=== PATIENT | male | born 1950 | race Caucasian/White ===

== ENCOUNTER 2018-11-11 22:25 | Emergency (ER) | payer MEDICAID, OTHER ==
[~2018-11-11] VITALS: Ht 167.6 cm; Wt 66.4 kg
[2018-11-11 22:29] VITALS: Ht 167.6 cm; Wt 66.4 kg
[2018-11-12] MEDS ORDERED: ONDANSETRON 4 MG INJ IV STA (00:51)
--- NOTE | 2018-11-12 04:39 | ERD ---
ER Documentation Chief Complaint Chief Complaint FEVER, GRAF, VOMITING, BODY ACHES X'S 1 DAY, DENIES CP/SOB HPI Is a 60-year-old male coming with the fevers headaches vomiting body aches and cough for the past 2 days. He denies chest pain or shortness of breath. Denies headache. Denies any current issues. Pain is mild to moderate intensity vomit is nonbilious nonbloody. Posttussive Yao only. Denies any other current issues. ROS All systems reviewed and are negative except as per history of present illness. Allergies Allergies: Coded Allergies: ciprofloxacin (Verified Allergy, Unknown, 11/11/18) PMhx/Soc History of Surgery: Yes (colon resection w/ colostomy 1999, colostomy reversal 2002, app) Anesthesia Reaction: No Hx Cardiac Disorders: Yes (HTN) Hx Psychiatric Problems: No Hx Miscellaneous Medical Probl: Yes (two hernias, right knee problem NOS) Hx Alcohol Use: No (doesn't drink) Hx Substance Use: No Hx Tobacco Use: No Smoking Status: Never smoker Physical Exam Vitals Vital Signs Date Temp Pulse Resp B/P (MAP) Pulse Ox O2 O2 Flow FiO2 Time Delivery Rate 11/12/18 55 20 155/57 97 Room Air 04:05 (89) 11/12/18 98.2 55 17 124/54 98 Room Air 01:10 (77) 11/11/18 100.3 82 22 145/64 94 22:29 (91) Physical Exam Const: No acute distress Head: Atraumatic Eyes: Normal Conjunctiva ENT: Normal External Ears, Nose and Mouth. Neck: Full range of motion. No meningismus. Resp: Clear to auscultation bilaterally Cardio: Regular rate and rhythm, no murmurs Abd: Soft, non tender, non distended. Normal bowel sounds Skin: No petechiae or rashes Back: No midline or flank tenderness Ext: No cyanosis, or edema Neur: Awake and alert Psych: Normal Mood and Affect Result Diagram: 11/12/1811711/12/18117 Results 24 hrs Laboratory Tests Test 11/12/18 01:12 11/12/18 01:18 11/12/18 03:14 POC Venous Lactate 0.8 mmol/L White Blood Count 24.1 10^3/ul Red Blood Count 3.97 10^6/ul Hemoglobin 11.8 g/dl Hematocrit 35.1 % Mean Corpuscular Volume 88.4 fl Mean Corpuscular Hemoglobin 29.7 pg Mean Corpuscular 33.6 g/dl Hemoglobin Concent Red Cell Distribution Width 13.1 % Platelet Count 235 10^3/UL Mean Platelet Volume 9.3 fl Immature Granulocytes % 1.200 % Neutrophils % 89.1 % Lymphocytes % 2.2 % Monocytes % 7.3 % Eosinophils % 0.0 % Basophils % 0.2 % Nucleated Red Blood Cells % 0.0 /100WBC Immature Granulocytes # 0.300 10^3/ul Neutrophils # 21.5 10^3/ul Lymphocytes # 0.5 10^3/ul Monocytes # 1.8 10^3/ul Eosinophils # 0.0 10^3/ul Basophils # 0.1 10^3/ul Nucleated Red Blood Cells # 0.0 10^3/ul Prothrombin Time 14.2 Sec Prothrombin Time Ratio 1.1 INR International Normalized Ratio 1.09 Activated Partial Thromboplast 30.5 Sec Time Sodium Level 143 mmol/L Potassium Level 3.2 mmol/L Chloride Level 109 mmol/L Carbon Dioxide Level 23 mmol/L Anion Gap 11 Blood Urea Nitrogen 20 mg/dl Creatinine 0.98 mg/dl Est Glomerular Filtrat Rate mL/min > 60 mL/min Glucose Level 120 mg/dl Calcium Level 9.1 mg/dl Total Bilirubin 0.8 mg/dl Direct Bilirubin 0.00 mg/dl Indirect Bilirubin 0.8 mg/dl Aspartate Amino Transf (AST/SGOT) 47 IU/L Alanine 30 IU/L Aminotransferase (ALT/SGPT) Alkaline Phosphatase 100 IU/L Troponin I < 0.012 ng/ml B-Type Natriuretic Peptide 132 PG/ML Total Protein 8.1 g/dl Albumin 4.2 g/dl Globulin 3.90 g/dl Albumin/Globulin Ratio 1.07 Lactic Acid Level 1.6 mmol/L Current Medications Medications Dose Sig/Lima Start Time Status Last (Trade) Ordered Route PRN Stop Time Admin Dose Reason Admin Ondansetron 4 mg ONCE STAT 11/12/18 DC 11/12/18 HCl (Zofran IV 00:51 01:10 Inj) 11/12/18 00:53 Procedures/MDM EKG: Rate/Rhythm: [Normal Sinus Rhythm] QRS, ST, T-waves: [No changes consistent w/ acute ischemia] Impression: [No evidence of ischemia or arrhythmia] Chest X-ray 1V Interpreted by me: Soft Tissue: No acute abnormalities Bones: No acute abnormalities Mediastinum/Cardiac Silhouette/Lungs: [No acute abnormalities] Medical decision making: This very pleasant patient with second is a viral syndrome. Although he has a white count 24,000, clinically the patient looks well. Temperature has normalized. Given fluids. Patient feels much better. Will be discharged home prednisone, Motrin, azithromycin as he likely patient has bronchitis. He has been advised to follow-up with his primary care physician return for worsening symptoms. Again no evidence of pneumonia noted Departure Diagnosis: Primary Impression: Bronchitis Condition: Stable MAL LAGUNA Nov 12, 2018 04:39
[2018-11-12] MEDS ORDERED: PRED20TA PO (04:41)
[2018-11-12] MEDS ORDERED: AZIT250T PO (04:41)
[2018-11-12] MEDS ORDERED: IBUP-1542 PO (04:41)
[2018-11-12 05:58] VITALS: BP 120/58; PULSE 68; RESP 19
== END 2018-11-12 06:00 | disposition home or self-care (01) ==
LOC: FTE 22:25 → E/R 11-12 06:00
DX: J40 Bronchitis, not specified as acute or chronic (principal); I10 Essential (primary) hypertension; R11.10 Vomiting, unspecified; R06.02 Shortness of breath; R40.2142 Coma scale, eyes open, spontaneous, at arrival to emergency department; R40.2252 Coma scale, best verbal response, oriented, at arrival to emergency department; R40.2362 Coma scale, best motor response, obeys commands, at arrival to emergency department
CPT/HCPCS: 36415; 71045; 80053; 83605; 83880; 84484; 85025; 85610; 85730; 87040; 93005; 96374; J2405; Z7502